=== PATIENT | female | born 1955 | race Caucasian/White ===

== ENCOUNTER → 2018-04-29 | Outpatient (CLI) | payer BC ==
[~2018-04-29] MED LIST: DULO60 PO
== END | disposition home or self-care (01) ==
LOC: LAB SHORT 11:18 → PLD 11:18
DX: L57.0 Actinic keratosis (principal)
CPT/HCPCS: 88305

== ENCOUNTER → 2022-10-25 | Outpatient (CLI) | payer MEDICARE, BC ==
[2022-10-25 17:47] LABS: Influenza A, PCR NEGATIVE (NEGATIVE); Influenza B, PCR NEGATIVE (NEGATIVE); Resp Syncytial Virus, PCR NEGATIVE (NEGATIVE); SARS-Cov-2 (COVID-19) PCR, MMC NEGATIVE (NEGATIVE)
== END ==
LOC: LAB SHORT 15:46 → LAB 15:46
PROVIDERS: Family Medicine
DX: R09.81 Nasal congestion (principal); R05.9 Cough, unspecified
CPT/HCPCS: 0241U

== ENCOUNTER 2023-09-18 07:41 | Day surgery (SDC) | payer MEDICARE, BC | END 2023-09-18 22:51 | disposition home or self-care (01) | LOC: CT 07:41 | DX: R06.02 Shortness of breath (principal); R00.2 Palpitations | CPT/HCPCS: 75574; Q9967 ==

== ENCOUNTER → 2025-05-30 | Outpatient (CLI) | payer MEDICARE, BC ==
[2025-05-30 19:05] LABS: BASOPHILS ABSOLUTE AUTO 0.05 K/mm3 (0.00-0.23); BASOPHILS PERCENT AUTO 1 % (0-2); EOSINOPHILS ABSOLUTE AUTO 0.17 K/mm3 (0.00-0.68); EOSINOPHILS PERCENT AUTO 3 % (0-6); Hematocrit 43.2 % (33.0-51.0); Hemoglobin 13.7 g/dL (11.5-16.0); IMMATURE GRAN ABSOLUTE AUTO 0.01 K/mm3 (0.00-0.10); IMMATURE GRAN PERCENT AUTO 0 % (0-1); LYMPHOCYTES ABSOLUTE AUTO 1.20 K/mm3 (0.84-5.20); LYMPHOCYTES PERCENT AUTO 19 % (21-46); MONOCYTES ABSOLUTE AUTO 0.34 K/mm3 (0.16-1.47); MONOCYTES PERCENT AUTO 6 % (4-13); Mean Corpuscular HGB Conc 31.7 g/dL (31.5-36.5); Mean Corpuscular Volume 88 fL (80-100); NEUTROPHILS ABSOLUTE AUTO 4.42 K/mm3 (1.96-9.15); NEUTROPHILS PERCENT AUTO 71 % (41-73); NRBC ABSOLUTE 0.00 K/mm3 (0.00-0.02); NRBC Auto 0.0 /100 WBC (0.0-0.2); Platelet Count 197 K/mm3 (150-400); RDW Coefficient Variation 15.5 % (11.7-14.2); RDW Standard Deviation 50.0 fL (35.1-46.3)
[2025-05-31 11:43] LABS: Ferritin, Serum 14.0 ng/mL (8-252); Total Iron Binding Capacity 380.0 ug/dL (250-450)
== END ==
LOC: LAB 18:00 → LAB SHORT 18:00
PROVIDERS: Family Medicine
DX: N18.2 Chronic kidney disease, stage 2 (mild) (principal); R53.83 Other fatigue
CPT/HCPCS: 82728; 83540; 83550; 85025